=== PATIENT | female | born 1980 | race American Indian/Alaskan Native ===

== ENCOUNTER 2016-12-25 06:44 | Day surgery (SDC) | payer MEDICAID ==
[2016-12-25] MEDS ORDERED: DIPRIVAN 10 MG/ML IV ONE ×2 (07:28)
[2016-12-25] MEDS ORDERED: NACL 0.9% 1000 ML 1,000 ML IV SCH (08:00)
--- NOTE | 2016-12-25 08:29 | Anesthesia Day of Surgery ---
Anesthesia Day of Surgery - Day of Surgery Patient Examined: Yes Patient H&P Reviewed: Yes Patient is NPO: Yes
--- NOTE | 2016-12-25 08:30 | Anesthesia Consultation ---
Anesthesia Consult and Med Hx Date of service: 12/25/16 - Airway Anesthetic Teeth Evaluation: Good ROM Head & Neck: Adequate Mental/Hyoid Distance: Adequate Mallampati Class: Class II Intubation Access Assessment: Probably Good - Pulmonary Exam CTA: Yes - Cardiac Exam Cardiac Exam: RRR - Pre-Operative Health Status ASA Pre-Surgery Classification: ASA2 Proposed Anesthetic Plan: MAC - Pulmonary Hx Smoking: Yes (1/2 ppd x 20yrs) - Cardiovascular System Hx Hypertension: No Hx Heart Attack/AMI: No - Central Nervous System Hx Seizures: No CVA: No - Endocrine Hx Renal Disease: No Hx Liver Disease: No Hx Non-Insulin Dependent Diabetes: No - Other Systems Hx Obesity: Yes - Additional Comments Anesthesia Medical History Comments: NAC
[2016-12-25] MEDS ORDERED: WATER FOR IRRIG STERILE IR ONE (08:52)
[2016-12-25] MEDS ORDERED: WATER FOR IRRIG STERILE ONE (08:57)
[2016-12-25] MEDS ORDERED: XYLOCAINE MPF 2% ONE (09:00)
--- NOTE | 2016-12-25 09:17 | Discharge Summary ---
Providers - Providers Date of discharge: 12/25/16 Attending physician: SOFIA LEAVITT Primary care physician: WARNER CHAO Hospitalization Condition: Good Procedures: EGD Hospital course: 36 F presented to hospital for EGD for upcoming bariatric surgery. She tolerated the procedure well. Disposition: - TO HOME OR SELFCARE Core Measure Documentation - Palliative Care Palliative Care/ Comfort Measures: Not Applicable - Core Measures Any of the following diagnoses?: none Exam - Physical Exam Narrative exam: No change from Preop - Constitutional Vitals: Temp Pulse Resp BP Pulse Ox 98.2 F 71 19 144/86 98 12/25/16 08:40 12/25/16 08:40 12/25/16 08:40 12/25/16 08:40 12/25/16 08:40 Plan Activity: no restrictions Diet: other (high protien, low carb) Follow up with: WARNER CHAO MD [Primary Care Provider] - 7 Days
--- NOTE | 2016-12-25 09:17 | Operative Report ---
Operative Report Operative Report: OPERATIVE REPORT - EGD DATE 12/25/16 SURGERY: Upper endoscopy. SURGEON: Amanda Wang M.D. SHIPPING AND RECEIVING SPECIALIST: n/a PRE OP DX:dyspepsia POST OP DX: hiatal hernia TYPE OF ANESTHESIA: MAC. ESTIMATED BLOOD LOSS: None. COMPLICATIONS: None. SPECIMENS REMOVED: None. FINDINGS: 1. Small hiatal hernia. 2. Otherwise, normal esophagus, stomach and first portion of duodenum. INDICATIONS:INDICATION FOR PROCEDURE: Patient is a 36-year-old female with a long history of morbid obesity. She is planned to have a weight loss procedure and is here for preoperative planning EGD, also evaluation to look for etiology of her symptoms. PROCEDURE DETAILS: After consent was reviewed, patient was taken back to the operating room where patient was placed in the left lateral decubitus position and a bite block was placed in the mouth. After a time-out was called, MAC anesthesia was initiated. I then passed the endoscope into her oropharynx, into her esophagus, visualized the entire esophagus, which was all within normal limits. I then visualized the stomach and the first portion of the duodenum and there were no abnormalities I could clearly visualize. I then retroflexed the scope in the stomach and visualized the hiatus and I could see a small hiatal hernia. I then desufflated the stomach and removed the endoscope. Patient tolerated procedure well and was transferred to recovery room in good and stable condition.
--- NOTE | 2016-12-25 11:00 | Post Anesthesia Evaluation ---
- Post Anesthesia Evaluation Patient Participated: Yes Airway Patent: Yes Stable Respiratory Function: Yes Nausea/Vomiting: No Temp > 96.8F: Yes Pain Manageable: Yes Adequeate Hydration: Yes Anesthesia Complications: No
[2016-12-25 11:15] VITALS: BP 130/92
== END 2016-12-25 06:45 | disposition home or self-care (01) ==
LOC: GIO 06:44
PROVIDERS: ATTEND Surgery
DX: K44.9 Diaphragmatic hernia without obstruction or gangrene (principal); F17.210 Nicotine dependence, cigarettes, uncomplicated; I10 Essential (primary) hypertension; Z98.51 Tubal ligation status; K21.9 Gastro-esophageal reflux disease without esophagitis; G47.33 Obstructive sleep apnea (adult) (pediatric); E66.01 Morbid (severe) obesity due to excess calories; Z68.42 Body mass index [BMI] 45.0-49.9, adult; Z88.8 Allergy status to other drugs, medicaments and biological substances
CPT/HCPCS: 43235; 81025; J2704; J7030